=== PATIENT | female | born 1965 | race Caucasian/White ===

== ENCOUNTER 2024-06-25 08:26 | Outpatient (CLI) | payer BC | END 2024-06-25 08:27 | disposition home or self-care (01) | LOC: CSHSLEEP 08:26 | PROVIDERS: ATTEND Internal Medicine Critical Care Medicine | DX: G47.33 Obstructive sleep apnea (adult) (pediatric) (principal); R09.89 Other specified symptoms and signs involving the circulatory and respiratory systems; E66.9 Obesity, unspecified; Z68.43 Body mass index [BMI] 50.0-59.9, adult | CPT/HCPCS: 95800 ==

== ENCOUNTER 2025-02-11 07:05 | Day surgery (SDC) | payer BC ==
[2025-02-08 12:38] VITALS: BMI 54.8
[2025-02-11] MEDS ORDERED: Acetaminophen 500 MG TAB ONE (11:29)
[2025-02-11] MEDS ORDERED: Bupivacaine HCl 0.5%/Epinephrine 1:200,000/PF 30 ml Vial ONE ×2 (12:19→12:47)
[2025-02-11] MEDS ORDERED: PROPOFOL 20 ML ONE (12:19)
[2025-02-11] MEDS ORDERED: Rocuronium Bromide 10 MG/ML (10ML VIAL) ONE (12:23)
[2025-02-11] MEDS ORDERED: CEFAZOLIN 2 GM VIAL ONE (12:26)
[2025-02-11] MEDS ORDERED: Lidocaine 1% PF 5 ML VIAL ONE (12:30)
[2025-02-11] MEDS ORDERED: SUGAMMADEX SODIUM 200 MG/2 ML VIAL ONE ×2 (14:41)
[2025-02-11] MEDS ORDERED: Ondansetron PF 4 MG/2 ML Vial ONE (15:05)
[2025-02-11] MEDS ORDERED: Ketorolac Tromethamine 30 MG (1 mL) VIAL ONE (15:09)
[2025-02-11] MEDS ORDERED: HYDROcodone/Acetaminophen 5/325 mg Tablet ONE (16:24)
== END 2025-02-11 17:45 | disposition home or self-care (01) ==
LOC: CSHSDC 07:05
PROVIDERS: ATTEND Surgery
PROC: 0HBU0ZX Excision of Left Breast, Open Approach, Diagnostic (ICD-10-PCS; principal; 2025-02-11)
PROC: 0HBU0ZZ Excision of Left Breast, Open Approach (ICD-10-PCS; principal; 2025-02-11)
DX: C50.812 Malignant neoplasm of overlapping sites of left female breast (principal); I10 Essential (primary) hypertension; Z79.899 Other long term (current) drug therapy; Z91.048 Other nonmedicinal substance allergy status; Z88.8 Allergy status to other drugs, medicaments and biological substances
CPT/HCPCS: 71045; 88307; 88331; 88342; A6258; C1713; C1788; J1100; J1642; J1885; J2405; J2704; J3010; Q9968

== ENCOUNTER 2025-02-11 08:00 | Day surgery (SDC) | payer BC | END 2025-02-11 13:58 | disposition home or self-care (01) | LOC: CSHNM 08:00 | PROVIDERS: ATTEND Surgery | PROC: BH01ZZZ Plain Radiography of Left Breast (ICD-10-PCS; principal; 2025-02-11) | DX: C50.912 Malignant neoplasm of unspecified site of left female breast (principal) | CPT/HCPCS: 19281; 76098; 78195; A9541 ==

== ENCOUNTER 2025-02-23 06:11 | Day surgery (SDC) | payer BC ==
[2025-02-19 11:08] VITALS: BMI 56.7
[2025-02-23] MEDS ORDERED: Ondansetron PF 4 MG/2 ML Vial ONE (06:24)
[2025-02-23] MEDS ORDERED: PROPOFOL 20 ML ONE ×2 (06:25→07:11)
[2025-02-23] MEDS ORDERED: diphenhydrAMINE 50 MG/ML VIAL ONE (06:28)
[2025-02-23] MEDS ORDERED: Bupivacaine HCl 0.5%/Epinephrine 1:200,000/PF 30 ml Vial ONE (06:50)
[2025-02-23] MEDS ORDERED: CEFAZOLIN 2 GM VIAL ONE (06:51)
[2025-02-23] MEDS ORDERED: PHENYLEPHRINE-NS 100 MCG/ML 10 ML SYRINGE ONE (07:35)
[2025-02-23] MEDS ORDERED: CEFAZOLIN 1 GM VIAL ONE (07:36)
== END 2025-02-23 10:07 | disposition home or self-care (01) ==
LOC: CSHSDC 06:11
PROVIDERS: ATTEND Surgery
PROC: 0HBU0ZZ Excision of Left Breast, Open Approach (ICD-10-PCS; principal; 2025-02-23)
DX: C50.412 Malignant neoplasm of upper-outer quadrant of left female breast (principal); I10 Essential (primary) hypertension; G47.33 Obstructive sleep apnea (adult) (pediatric); Z17.0 Estrogen receptor positive status [ER+]; Z17.21 Progesterone receptor positive status; Z17.32 Human epidermal growth factor receptor 2 negative status; Z90.49 Acquired absence of other specified parts of digestive tract
CPT/HCPCS: 88307; 88341; 88342; C1713; J0690; J1100; J1200; J2250; J2405; J2704; J3010

== ENCOUNTER 2025-03-08 13:08 | Outpatient (CLI) | payer BC ==
[~2025-03-08 13:08] MED LIST: Iopamidol 300 61% 100 ML VIAL FS ONE
[2025-03-08 14:39] LABS: Estimated GFR - POC 99.0
== END 2025-03-08 13:09 | disposition home or self-care (01) ==
LOC: CSHCT 13:08
PROVIDERS: ATTEND Radiology Radiation Oncology
DX: C50.812 Malignant neoplasm of overlapping sites of left female breast (principal); R59.0 Localized enlarged lymph nodes
CPT/HCPCS: 36415; 71260; 82565